=== PATIENT | female | born 1985 | race American Indian/Alaskan Native ===

== ENCOUNTER 2020-09-15 19:32 | Emergency (ER) | payer SELFPAY ==
[2020-09-15 21:05] VITALS: BP 128/80
[2020-09-15] MEDS ORDERED: dexAMETHasone 4 MG/ML VIAL IM ONE (21:05)
[2020-09-15] MEDS ORDERED: ACETAMINOPHEN 500 MG TAB PO ONE (21:05)
--- NOTE | 2020-09-15 21:12 | Emergency Department Report ---
ED ENT HPI - General Chief complaint: Dental/Oral Stated complaint: BROKEN TOOTH/FACE SWELLING Time Seen by Provider: 09/15/20 21:04 Source: patient Mode of arrival: Ambulatory Limitations: No Limitations - History of Present Illness Initial comments: 35-year-old female presents to the ER today with complaints of dental pain and swelling to the left lower jaw. Patient states that she has had a broken tooth to the left lower jaw since May but this past weekend started to ache mildly and that started gradually getting worse and then this morning woke up with her left jaw swollen. She states that she has been taking ibuprofen as well as doing warm salt water rinses and topical warm compresses without much relief. She states that she did call a local dentist but the next appointment is not until October. She reports no difficulty swallowing, difficulty breathing, drooling or shortness of breath, fever or chills. MD complaint: tooth pain, other (Left lower jaw swelling) -: Gradual (About 2 to 3 days ago) - Related Data Previous Rx's Medication Instructions Recorded Last Taken Type Famotidine [Pepcid] 10 mg PO BID #60 tablet 06/06/13 Unknown Rx Omeprazole [PriLOSEC] 20 mg PO QDAY #30 capsule. 06/06/13 Unknown Rx Ondansetron [Zofran] 4 mg PO Q6HR PRN #15 tablet 06/06/13 Unknown Rx Acetaminophen/Codeine [Tylenol 1 tab PO Q4HR PRN #12 tablet 09/15/20 Unknown Rx /Codeine # 3 tab] Clindamycin [Clindamycin CAP] 300 mg PO Q6H #40 capsule 09/15/20 Unknown Rx Ibuprofen [Motrin] 800 mg PO Q8HR PRN #30 tablet 09/15/20 Unknown Rx Allergies Allergy/AdvReac Type Severity Reaction Status Date / Time Penicillins Allergy Swelling Verified 06/06/13 11:41 ED Dental HPI - General Chief complaint: Dental/Oral Stated complaint: BROKEN TOOTH/FACE SWELLING Time Seen by Provider: 09/15/20 21:04 Source: patient Mode of arrival: Ambulatory Limitations: No Limitations - Related Data Previous Rx's Medication Instructions Recorded Last Taken Type Famotidine [Pepcid] 10 mg PO BID #60 tablet 06/06/13 Unknown Rx Omeprazole [PriLOSEC] 20 mg PO QDAY #30 capsule. 06/06/13 Unknown Rx Ondansetron [Zofran] 4 mg PO Q6HR PRN #15 tablet 06/06/13 Unknown Rx Acetaminophen/Codeine [Tylenol 1 tab PO Q4HR PRN #12 tablet 09/15/20 Unknown Rx /Codeine # 3 tab] Clindamycin [Clindamycin CAP] 300 mg PO Q6H #40 capsule 09/15/20 Unknown Rx Ibuprofen [Motrin] 800 mg PO Q8HR PRN #30 tablet 09/15/20 Unknown Rx Allergies Allergy/AdvReac Type Severity Reaction Status Date / Time Penicillins Allergy Swelling Verified 06/06/13 11:41 ED Review of Systems ROS: Stated complaint: BROKEN TOOTH/FACE SWELLING Other details as noted in HPI Comment: All other systems reviewed and negative Constitutional: denies: chills, diaphoresis, fever, malaise, weakness Eyes: denies: eye pain, eye discharge, vision change ENT: dental pain, other (Left lower jaw swelling). denies: ear pain, throat pain, hearing loss, epistaxis, congestion Respiratory: denies: cough, orthopnea, shortness of breath, SOB with exertion, SOB at rest, wheezing Cardiovascular: denies: chest pain, palpitations, dyspnea on exertion, orthopnea, edema, syncope, paroxysmal nocturnal dyspnea Gastrointestinal: denies: abdominal pain, nausea, diarrhea, constipation, hematemesis, melena, hematochezia Genitourinary: denies: urgency, dysuria, discharge Musculoskeletal: denies: back pain, joint swelling, arthralgia, myalgia Skin: denies: rash, lesions, change in color, change in hair/nails, pruritus Neurological: denies: headache, weakness, paresthesias ED Past Medical Hx - Past Medical History Previous Medical History?: No - Surgical History Additional Surgical History: cyst removal - Social History Smoking Status: Current Every Day Smoker Substance Use Type: Alcohol - Medications Home Medications: Home Medications Medication Instructions Recorded Confirmed Last Taken Type Famotidine [Pepcid] 10 mg PO BID #60 tablet 06/06/13 Unknown Rx Omeprazole [PriLOSEC] 20 mg PO QDAY #30 capsule. 06/06/13 Unknown Rx Ondansetron [Zofran] 4 mg PO Q6HR PRN #15 tablet 06/06/13 Unknown Rx Acetaminophen/Codeine [Tylenol 1 tab PO Q4HR PRN #12 tablet 09/15/20 Unknown Rx /Codeine # 3 tab] Clindamycin [Clindamycin CAP] 300 mg PO Q6H #40 capsule 09/15/20 Unknown Rx Ibuprofen [Motrin] 800 mg PO Q8HR PRN #30 tablet 09/15/20 Unknown Rx ED Physical Exam - General Limitations: No Limitations General appearance: alert, in distress (Secondary to pain) - Head Head exam: Present: atraumatic, normocephalic, normal inspection - Eye Eye exam: Present: normal appearance, PERRL, EOMI Pupils: Present: normal accommodation - ENT ENT exam: Present: normal orophraynx, mucous membranes moist, other (S moderate amount of swelling noted to left lower jaw but no extension of the swelling into the neck or the throat and no associated facial cellulitis) - Expanded ENT Exam Expanded Mouth exam: Absent: drooling, trismus, muffled voice, tongue normal, tongue elevation, laceration 1 - Fractured, Dental Tenderness (Severe dental tenderness), Other (Associated dental abscess) - Neck Neck exam: Present: normal inspection, full ROM. Absent: meningismus - Respiratory Respiratory exam: Present: normal lung sounds bilaterally. Absent: respiratory distress - Cardiovascular Cardiovascular Exam: Present: regular rate - Neurological Exam Neurological exam: Present: alert, oriented X3, CN II-XII intact, normal gait - Psychiatric Psychiatric exam: Present: normal affect, normal mood - Skin Skin exam: Present: intact ED Course Vital Signs 09/15/20 09/15/20 20:36 20:40 Temperature 98.3 F Pulse Rate 72 111 H Respiratory 18 Rate Blood Pressure 128/80 O2 Sat by Pulse 100 98 Oximetry ED Medical Decision Making - Medical Decision Making Patient with dental abscess on exam but no associated facial cellulitis, and no evidence of Melchor's angina, or associated peritonsillar abscess or any other emergent conditions warranting testing at this time. She is able to sister's recent secretion, she has no trismus on exam and she is not in any respiratory distress. There is no stridor. Her vital signs are stable. She is not toxic or ill-appearing and appears hydrated. Discussed diagnosis and treatment plan with patient. She expresses understanding of instructions and agree with plan. Patient was stable at time of discharge. Critical care attestation.: If time is entered above; I have spent that time in minutes in the direct care of this critically ill patient, excluding procedure time. ED Disposition Clinical Impression: Abscess, dental Disposition: DC- TO HOME OR SELFCARE Is pt being admited?: No Does the pt Need Aspirin: No Condition: Stable Instructions: Dental Abscess, [id number] Additional Instructions: Take the clindamycin, Tylenol threes and the Motrin as prescribed. Continue doing the warm salt water rinses 2-3 times per day and you can also do warm compresses over the jaw to help with pain and swelling. Most importantly follow-up with a dentist in the next 1 to 2 weeks. Return to the ER if your sy mptoms changes or worsens in any way. Prescriptions: Clindamycin [Clindamycin CAP] 300 mg PO Q6H #40 capsule Ibuprofen [Motrin] 800 mg PO Q8HR PRN #30 tablet PRN Reason: pain Acetaminophen/Codeine [Tylenol /Codeine # 3 tab] 1 tab PO Q4HR PRN #12 tablet PRN Reason: Pain Referrals: [facility] [Other] - 7-10 days Forms: Work/School Release Form(ED) Time of Disposition: 21:12
[2020-09-15] MEDS ORDERED: CLINDAMYCIN 150 MG/ML 2 ML VIAL IM ONE (22:05)
== END 2020-09-15 22:11 | disposition home or self-care (01) ==
LOC: ED 19:32
DX: K04.7 Periapical abscess without sinus (principal); F17.200 Nicotine dependence, unspecified, uncomplicated; Z72.89 Other problems related to lifestyle; Z88.0 Allergy status to penicillin; Z79.899 Other long term (current) drug therapy
CPT/HCPCS: 96372; 99282; J1100